=== PATIENT | male | born 1990 | race Caucasian/White ===

== ENCOUNTER 2024-06-26 11:16 | Day surgery (SDC) | payer OTHER, SELFPAY ==
[2024-06-26] VITALS (7 sets, daily range): BP systolic 96–142; BP diastolic 64–88; PULSE 56–82; RESP 14–19; TEMP 36.2–36.9; O2SAT 95–100
--- NOTE | 2024-06-26 | PATH_ITS ---
[facility] Accession Number: [id number] No. of containers..02 Tissue . 01 Material submitted: . PART A: ileo-cecal valve - IC VALVE, BIOPSY PART B: rectum - RECTUM . 01 Clinical history: . A) R/O CROHNS . 01 Diagnosis: Part A: IC VALVE, BIOPSY: Ileal mucosa with mild active inflammation. No dysplasia, granulomas, or infectious organisms identified. See comment. . Specimen Comments: The histologic features are nonspecific, and the differential diagnosis includes inflammation due to medications, particularly to NSAIDs, or an acute infectious process. Additionally, Crohn's disease enters the differential, especially if other etiologies have been excluded, and clinical correlation is recommended. . Part B: RECTUM: Colonic mucosa with no diagnostic alterations. No active inflammation, granulomas, dysplasia, or malignancy identified. No evidence of colitis. [facility] 06/28/2024 1539 Local . 01 Electronically signed: . Yemi Linder MD, Pathologist NPI- [id number] . 01 Gross description: . A. Received in formalin with two patient identifiers and ileocecal valve, is a single dejesus soft tissue fragment 0.3 cm in greatest dimension. Submitted in cassette A1. . B. Received in formalin with two patient identifiers and rectum, are multiple dejesus soft tissue fragments aggregating to 1.3 x 0.3 x 0.2 cm. Filtered and submitted in cassette B1. ([id number]) /[facility] 06/28/2024 1539 Local . 01 Pathologist provided ICD-10: K52.9 . 01 CPT . 250428, [id number] Specimen Comment: A courtesy copy of this report has been sent to [phone] Performed at: [address] [place] [address] [address] [facility], [place], [place] [id number] MD Yemi Linder MD Phone: [phone]
[2024-06-26] MEDS: LACTATED RINGERS 1,000 ML 42 ML IV (11:42)
--- NOTE | 2024-06-26 11:42 | PM.HP.1 ---
History of Present Illness History of Present Illness Date Patient Seen: 06/26/24 Chief complaint: Colonoscopy Narrative: Brother diagnosed with colon cancer. Patient asymptomatic. [facility] Social History Smoking Status: Never smoker Meds Home Medications and Allergies Home Medications Medication Instructions Recorded Confirmed Type No Known Home Medications 06/26/24 06/26/24 History Allergies Allergy/AdvReac Type Severity Reaction Status Date / Time No Known Drug Allergies Allergy Verified 06/26/24 11:30 Exam Vital Signs (past 8 hours): - 06/26/24 11:33 Temperature 97.6 F Pulse Rate 75 Respiratory Rate 15 Blood Pressure 142/88 H Pulse Oximetry 100 Oxygen Delivery Method Room Air Oxygen Delivery Method Room Air Narrative Exam Narrative: Oropharynx free of lesions Chest clear to auscultation percussion Cardiac exam reveals no S3 or murmur Assessment & Plan Assessment & Plan narrative: Family history of colon cancer in her brother at young age. Need for 1st colonoscopy. Risks, benefits, alternatives have been explained. Time-Based Coding :: [TOTAL MINUTES] spent with patient and on the chart (including review of chart, obtaining history, exam, reviewing outside data, placing orders, documenting exam and treatment plan, and counseling patient) on [DATE].
--- NOTE | 2024-06-26 11:44 | PM.OP.COLON ---
Operative Date/Time/Diagnoses Date of procedure: 06/26/24 Pre-op diagnosis: See indication and findings Procedure & Clinicians Study performed: Colonoscopy Indications: Family history of colon cancer in her brother at a young age Surgeon: Meg Maravilla Procedure Notes Procedure in detail: After informed consent was obtained the patient was placed in left lateral decubitus position. The video colonoscope was introduced the rectum slowly advanced cecum. Preparation was good. On slow withdrawal mucosa was carefully examined. The scope was removed. The patient tolerated procedure well. Blood loss none Complications none Sedation mac Findings 1. Distal sigmoid and rectum with patchy erythema, occasional aphthous ulcer, and hematin flecks. Biopsies taken to rule out proctitis 2. Normal remainder of the colon 3. Ic valve with possible mild inflammation with erythema and white exudate. Biopsies taken No neoplastic or pre neoplastic tissue seen. He will need follow-up colonoscopy in 5 years. We will be in touch regarding the biopsies.
== END 2024-06-26 14:01 | disposition home or self-care (01) ==
PROVIDERS: PCP Family Medicine; Referring Provider Internal Medicine Gastroenterology; Visit Provider Internal Medicine Gastroenterology
PROC: 0DJD8ZZ Inspection of Lower Intestinal Tract, Via Natural or Artificial Opening Endoscopic (ICD-10-PCS; CPT 45378; principal; 2024-06-26 12:30)
DX: Z12.11 Encounter for screening for malignant neoplasm of colon (principal); Z80.0 Family history of malignant neoplasm of digestive organs; K52.9 Noninfective gastroenteritis and colitis, unspecified
CPT/HCPCS: 45380; J2704